=== PATIENT | female | born 1995 | race Caucasian/White ===

== ENCOUNTER 2016-06-28 06:17 | Inpatient (IN) | payer OTHER ==
[~2016-06-28] VITALS: Ht 175.3 cm; Wt 150.0 kg
[2016-06-28] VITALS (36 sets, daily range): BP systolic 104–182; BP diastolic 55–94
[2016-06-28] MEDS ORDERED: PRENTAB9 PO (07:04)
[2016-06-28 07:48] LABS: BASO # 0.1 K/mm3 (0.0-0.2); BASO % 0.5 % (0.0-1.0); EOS # 0.1 K/mm3 (0.0-0.50); EOS % 0.8 % (0.0-3.0); LARGE UNSTAINED CELL # 0.2 K/mm3 (0.0-0.4); LARGE UNSTAINED CELL % 1.1 % (0.0-4.0); LYMPH # 1.7 K/mm3 (1.5-6.5); LYMPH % 12.7 % (24.0-44.0); MEAN CORPUSCULAR HEMOGLOBIN 23.8 pg (27.0-33.0); MEAN CORPUSCULAR HGB CONC 31.3 g/dl (32.0-36.5); MEAN CORPUSCULAR VOLUME 75.9 fl (80.0-96.0); MONO # 0.6 K/mm3 (0.0-0.8); MONO % 4.8 % (0.0-5.0); NEUTROPHILS # 10.7 K/mm3 (1.8-7.7); NEUTROPHILS % 80.1 % (36.0-66.0); PLATELET COUNT, AUTOMATED 340 k/mm3 (150-450); WHITE BLOOD COUNT 13.4 K/mm3 (4.0-10.0)
[2016-06-28 08:21] LABS: ALT/SGPT 24 U/L (12-78); AST/SGOT 24 U/L (15-37); BILIRUBIN,TOTAL 0.3 MG/DL (0.2-1.0); GLOMERULAR FILTRATION RATE > 60.0 (>60); URIC ACID 3.4 MG/DL (2.6-6.0)
[2016-06-28] MEDS ORDERED: miSOPROStol 50 MCG 1/2 TAB (S0191) PO ONE (08:45)
[2016-06-28] MEDS: miSOPROStol 50 MCG 1/2 TAB (S0191) PO SCH ×2 (13:53→18:13)
[2016-06-28] MEDS ORDERED: ACETAMINOPHEN 500 MG TAB As Ordered ONE (16:40)
[2016-06-28] MEDS ORDERED: ACETAMINOPHEN 500 MG TAB PO PRN (16:45)
[2016-06-28] MEDS: LR 1,000 ML IV SCH (20:40)
[2016-06-28] MEDS ORDERED: OXYTOCIN DRIP 30 UNITS in APPROPRIATE DILUENT 1 EA IV SCH (20:45)
[2016-06-29] VITALS (29 sets, daily range): BP systolic 86–174; BP diastolic 50–106
[2016-06-29] MEDS ORDERED: miSOPROStol 25 MCG 1/4 TAB (S0191) PV ONE (10:00)
[2016-06-29] MEDS ORDERED: miSOPROStol 25 MCG 1/4 TAB (S0191) As Ordered ONE (10:04)
[2016-06-29] MEDS: LR 1,000 ML IV SCH ×2 (14:43→20:00)
[2016-06-29] MEDS ORDERED: BICITRA 30ML SOLN UDC PO ONE (14:45)
[2016-06-29] MEDS ORDERED: OXYTOCIN INJ 10 UNITS/ML VIAL (J2590) As Ordered ONE (14:46)
[2016-06-29] MEDS ORDERED: MORPHINE PRES-FREE INJ 10 MG/10 ML VIAL (J2274) As Ordered ONE (14:46)
[2016-06-29] MEDS ORDERED: KETOROLAC 60 MG/2 ML VIAL (J1885) As Ordered ONE (16:36)
[2016-06-29] MEDS ORDERED: PROMETHAZINE 25 MG TAB PO PRN (17:15)
[2016-06-29] MEDS ORDERED: MEASLES,MUMPS,RUBELLA VACCINE INJ (MMR-II) (90707) SC SCH (17:15)
[2016-06-29] MEDS ORDERED: ONDANSETRON 4MG/2ML VIAL (J2405) IV PRN ×2 (17:15)
[2016-06-29] MEDS ORDERED: METHYLERGONOVINE MALEATE 0.2 MG/ML VIAL (J2210) IM PRN (17:15)
[2016-06-29] MEDS ORDERED: fentaNYL 100 MCG/2 ML INJECTION (J3010) IV PRN (17:15)
[2016-06-29] MEDS ORDERED: RHOGAM 300 MCG (1500 IU) INJ (J2790) IM SCH (17:15)
[2016-06-29] MEDS ORDERED: PERCOCET 5MG/325MG TAB PO PRN ×2 (17:15)
[2016-06-29] MEDS ORDERED: NALBUPHINE HCL 10 MG/ML AMP (J2300) IV PRN (17:15)
[2016-06-29] MEDS ORDERED: MEPERIDINE INJ 25 MG/ML VIAL (J2175) IV PRN (17:15)
[2016-06-29] MEDS: DOCUSATE SODIUM 100 MG CAP PO SCH (21:00)
[2016-06-29] MEDS: KETOROLAC 30 MG/ML VIAL (J1885) IV SCH (22:34)
[2016-06-30] VITALS (7 sets, daily range): BP systolic 136–172; BP diastolic 72–86
[2016-06-30] MEDS: LR 1,000 ML IV SCH ×2 (03:18→09:05)
[2016-06-30] MEDS: KETOROLAC 30 MG/ML VIAL (J1885) IV SCH ×3 (03:50→15:54)
[2016-06-30] MEDS: MAG Sulf (OBGYN) 20GM/500ML 20,000 MG in APPROPRIATE DILUENT 1 EA IV SCH (04:30)
[2016-06-30 06:51] LABS: MEAN CORPUSCULAR HEMOGLOBIN 24.5 pg (27.0-33.0); MEAN CORPUSCULAR HGB CONC 32.1 g/dl (32.0-36.5); MEAN CORPUSCULAR VOLUME 76.2 fl (80.0-96.0); RED CELL DISTRIBUTION WIDTH 15.1 % (11.5-14.5)
[2016-06-30] MEDS: PRENATAL VITAMIN TAB PO SCH (09:12)
[2016-06-30] MEDS: DOCUSATE SODIUM 100 MG CAP PO SCH ×2 (09:12→19:10)
[2016-06-30] MEDS: PERCOCET 5MG/325MG TAB PO PRN ×2 (14:20→19:10)
--- NOTE | 2016-06-30 20:35 | RO ---
DATE OF PROCEDURE: 06/29/2016 PREOPERATIVE DIAGNOSES: 1. Failed induction of labor. 2. Intrauterine at 37 and 3 weeks estimated gestational age. 3. Preeclampsia. POSTOPERATIVE DIAGNOSES: 1. Failed induction of labor. 2. Intrauterine at 37 and 3 weeks estimated gestational age. 3. Preeclampsia. 4. Delivered. PROCEDURE PERFORMED: Primary low transverse section. SURGEON: Carmen Cortez MD WHEEL INSTALLER: Wilmer Trammell MD ANESTHESIA: Spinal. ESTIMATED BLOOD LOSS: 700 mL. FLUIDS: 2100 mL of lactated Ringer's. URINE OUTPUT: 25 mL. CONDITION: Stable. COMPLICATIONS: None. SPECIMEN: Placenta. ANTIBIOTICS: Ancef 2 grams IV times one prior to skin incision. INDICATION: The patient is a 20-year-old, G1 at 37 and 3 weeks estimated gestational age admitted for induction of labor for preeclampsia. She was given four doses of misoprostol and had approximately 12 hours of Pitocin and through approximately 36 hours of induction the patient only progressed to 1 cm of dilation. At that point the patient was counseled and consented for a section for failed induction of labor. FINDINGS: Normal uterus, tubes and ovaries bilaterally. Viable male infant, Apgars 8 and 8, weight 6 pounds 2 ounces, 2784 grams. OPERATIVE PROCEDURE: The risks, benefits, indications and alternatives were reviewed with the patient and informed consent was obtained. The patient was taken to the operating room where spinal anesthesia was obtained without difficulty. She was then prepped and draped in a normal sterile fashion in the dorsal supine position with a leftward tilt. A Pfannenstiel skin incision was then made with a scalpel and carried through to the underlying layer of fascia. Fascia was then incised in the midline and the incision extended laterally with Marcus scissors. Superior aspect of the fascial incision was grasped with Meseret clamps, elevated and underlying rectus muscles dissected off aided with Marcus scissors. Attention was then turned to the inferior aspect. The incision which in a similar fashion was grasped, tented up with Meseret clamps and the rectus muscles dissected off aided with Marcus scissors. The peritoneal incision was then extended horizontally with good visualization of the bladder. The bladder blade was then inserted. Next, the lower uterine segment was incised in a transverse fashion with the scalpel. The uterine incision was then extended manually. The amniotic sac was artificially ruptured productive of clear fluid. The bladder blade was then removed. The 's head delivered atraumatically in the OP position through the hysterotomy without difficulty. The nose and mouth were suctioned with bulb syringe and the cord doubly clamped and cut. Infant was handed off to the waiting pediatricians. The placenta was then removed spontaneously with gentle traction on the umbilical cord. The uterus was then exteriorized and cleared of all clots and debris. The uterine incision was repaired with #0 Vicryl in a running locked fashion. A second layer of #0 Vicryl was then used to imbricate the hysterotomy. The posterior cul-de-sac was irrigated. The uterus was then returned to the abdomen and the hysterotomy was again noted to be hemostatic. The fascia was then reapproximated with #0 Vicryl in a running fashion. The subcutaneous layer was closed with #3-0 Vicryl in a running fashion. The skin was then closed with #3- 0 Monocryl on a German needle in subcuticular fashion. The incision was then dressed with Steri-Strips and a pressure dressing applied. At the completion of the case, bimanual exam was performed noting good uterine tone and minimal vaginal bleeding. The patient tolerated the procedure well. Sponge, lap and needle counts were correct times three. The patient was taken to the recovery room in stable condition. ANNE
[2016-06-30] MEDS: IBUPROFEN 800 MG TAB PO SCH (23:55)
[2016-07-01] VITALS (26 sets, daily range): BP systolic 134–174; BP diastolic 58–107
[2016-07-01] MEDS: PERCOCET 5MG/325MG TAB PO PRN ×2 (00:33→15:06)
[2016-07-01] MEDS ORDERED: hydrALAZINE INJ 20 MG/ML VIAL IV ONE (02:15)
[2016-07-01] MEDS ORDERED: MAG Sulf (L&D) 4 GM/100 ML 4 GM in APPROPRIATE DILUENT 1 EA IV ONE (02:15)
[2016-07-01 03:36] LABS: BASO % 0.2 % (0.0-1.0); EOS # 0.2 K/mm3 (0.0-0.50); EOS % 1.4 % (0.0-3.0); LARGE UNSTAINED CELL # 0.1 K/mm3 (0.0-0.4); LARGE UNSTAINED CELL % 0.9 % (0.0-4.0); LYMPH # 2.2 K/mm3 (1.5-6.5); LYMPH % 19.3 % (24.0-44.0); MEAN CORPUSCULAR HEMOGLOBIN 23.9 pg (27.0-33.0); MEAN CORPUSCULAR VOLUME 77.1 fl (80.0-96.0); MONO # 0.5 K/mm3 (0.0-0.8); NEUTROPHILS # 7.9 K/mm3 (1.8-7.7); NEUTROPHILS % 73.2 % (36.0-66.0); PLATELET COUNT, AUTOMATED 309 k/mm3 (150-450); RED CELL DISTRIBUTION WIDTH 15.4 % (11.5-14.5); WHITE BLOOD COUNT 10.8 K/mm3 (4.0-10.0)
[2016-07-01] MEDS ORDERED: LABETALOL HCL 100 MG/20 ML VIAL IV STA (03:40)
[2016-07-01 04:08] LABS: ALBUMIN 1.9 GM/DL (3.2-5.2); ALBUMIN/GLOBULIN RATIO 0.48 (1.00-1.93); ALKALINE PHOSPHATASE 117 U/L (45-117); ALT/SGPT 28 U/L (12-78); ANION GAP 8 MEQ/L (8-16); AST/SGOT 24 U/L (15-37); BILIRUBIN,DIRECT < 0.1 MG/DL (0.0-0.2); BILIRUBIN,TOTAL 0.2 MG/DL (0.2-1.0); BLOOD UREA NITROGEN 7 MG/DL (7-18); CALCIUM LEVEL 8.5 MG/DL (8.5-10.1); CARBON DIOXIDE LEVEL 25 MEQ/L (21-32); CHLORIDE LEVEL 108 MEQ/L (98-107); CREATININE FOR GFR 0.71 MG/DL (0.55-1.02); GLOMERULAR FILTRATION RATE > 60.0 (>60); GLUCOSE, FASTING 89 MG/DL (70-105); MAGNESIUM LEVEL 1.7 MG/DL (1.8-2.4); POTASSIUM SERUM 3.4 MEQ/L (3.5-5.1); SODIUM LEVEL 141 MEQ/L (136-145); TOTAL PROTEIN 5.9 GM/DL (6.4-8.2)
[2016-07-01] MEDS: DOCUSATE SODIUM 100 MG CAP PO SCH ×2 (08:53→21:00)
[2016-07-01] MEDS: PRENATAL VITAMIN TAB PO SCH (08:53)
[2016-07-01] MEDS: IBUPROFEN 800 MG TAB PO SCH ×2 (08:53→16:34)
[2016-07-01] MEDS: LR 1,000 ML IV SCH (13:46)
[2016-07-01] MEDS: MAG Sulf (OBGYN) 20GM/500ML 20,000 MG in APPROPRIATE DILUENT 1 EA IV SCH ×2 (13:47→22:40)
[2016-07-02] VITALS (9 sets, daily range): BP systolic 137–154; BP diastolic 60–85
[2016-07-02] MEDS: IBUPROFEN 800 MG TAB PO SCH ×4 (00:30→23:49)
[2016-07-02] MEDS: LR 1,000 ML IV SCH (01:52)
[2016-07-02 06:41] LABS: BASO % 0.1 % (0.0-1.0); EOS # 0.2 K/mm3 (0.0-0.50); EOS % 2.5 % (0.0-3.0); LARGE UNSTAINED CELL # 0.2 K/mm3 (0.0-0.4); LARGE UNSTAINED CELL % 1.6 % (0.0-4.0); LYMPH # 1.5 K/mm3 (1.5-6.5); LYMPH % 15.3 % (24.0-44.0); MEAN CORPUSCULAR HEMOGLOBIN 24.2 pg (27.0-33.0); MEAN CORPUSCULAR HGB CONC 31.9 g/dl (32.0-36.5); MEAN CORPUSCULAR VOLUME 75.9 fl (80.0-96.0); MONO # 0.4 K/mm3 (0.0-0.8); MONO % 4.2 % (0.0-5.0); NEUTROPHILS # 7.4 K/mm3 (1.8-7.7); NEUTROPHILS % 76.2 % (36.0-66.0); PLATELET COUNT, AUTOMATED 325 k/mm3 (150-450); RED CELL DISTRIBUTION WIDTH 15.5 % (11.5-14.5); WHITE BLOOD COUNT 9.7 K/mm3 (4.0-10.0)
[2016-07-02 07:00] LABS: ALBUMIN 1.9 GM/DL (3.2-5.2); ALBUMIN/GLOBULIN RATIO 0.49 (1.00-1.93); ALKALINE PHOSPHATASE 106 U/L (45-117); ALT/SGPT 26 U/L (12-78); ANION GAP 8 MEQ/L (8-16); AST/SGOT 26 U/L (15-37); BILIRUBIN,TOTAL 0.2 MG/DL (0.2-1.0); BLOOD UREA NITROGEN 3 MG/DL (7-18); CALCIUM LEVEL 7.2 MG/DL (8.5-10.1); CARBON DIOXIDE LEVEL 25 MEQ/L (21-32); CHLORIDE LEVEL 108 MEQ/L (98-107); CREATININE FOR GFR 0.53 MG/DL (0.55-1.02); GLOMERULAR FILTRATION RATE > 60.0 (>60); GLUCOSE, FASTING 88 MG/DL (70-105); POTASSIUM SERUM 3.5 MEQ/L (3.5-5.1); SODIUM LEVEL 141 MEQ/L (136-145); TOTAL PROTEIN 5.8 GM/DL (6.4-8.2)
[2016-07-02] MEDS: PRENATAL VITAMIN TAB PO SCH (08:24)
[2016-07-02] MEDS: DOCUSATE SODIUM 100 MG CAP PO SCH ×2 (08:24→21:30)
[2016-07-02] MEDS: PERCOCET 5MG/325MG TAB PO PRN ×3 (11:21→22:00)
--- NOTE | 2016-07-02 20:02 | ECGEPIP ---
Stationary ECG Study [facility] - ED Test Date: 2016-07-01 Pat Name: VINI ARIZMENDI Department: Room: [place] [address] Gender: F Manager Acquisition: ANÍBAL : 1995 Requested By: MIKEY Tovar Order Number: [id number] Reading MD: Sharlene Lopez Measurements Intervals [place] Rate: 112 P: 53 CT: 132 QRS: 5 QRSD: 99 T: 31 QT: 323 QTc: 442 Interpretive Statements SINUS TACHYCARDIA POSSIBLE ANTERIOR MYOCARDIAL INFARCTION, PROBABLY OLD ABNORMAL RHYTHM ECG NSTTW ABNORMALITY NO PRIOR FOR COMPARISON Electronically Signed On 07-02-2016 20:02:21 EST by Sharlene Lopez
[2016-07-03 01:48] VITALS: BP 149/72
[2016-07-03 06:04] VITALS: BP 146/79
[2016-07-03] MEDS: IBUPROFEN 800 MG TAB PO SCH (07:31)
[2016-07-03] MEDS: PRENATAL VITAMIN TAB PO SCH (07:32)
[2016-07-03] MEDS: DOCUSATE SODIUM 100 MG CAP PO SCH (07:33)
[2016-07-03] MEDS ORDERED: COLA100C PO (07:56)
[2016-07-03] MEDS ORDERED: OXYC1TAB23 PO (08:01)
[2016-07-03] MEDS ORDERED: IBUP-1114 PO (08:01)
== END 2016-07-03 08:10 | disposition home or self-care (01) | DRG 765 ==
LOC: M LDI 06:17 → M OBS 06-29 18:15
PROVIDERS: ADMIT Obstetrics & Gynecology; ATTEND Obstetrics & Gynecology
PROC: 3E0P7GC Introduction of Other Therapeutic Substance into Female Reproductive, Via Natural or Artificial Opening (ICD-10-PCS; 2016-06-28)
PROC: 10D00Z1 Extraction of Products of Conception, Low, Open Approach (ICD-10-PCS; principal; 2016-06-29 16:01)
DX: O11.4 Pre-existing hypertension with pre-eclampsia, complicating childbirth (principal); Z68.42 Body mass index [BMI] 45.0-49.9, adult; O99.214 Obesity complicating childbirth; E66.01 Morbid (severe) obesity due to excess calories; J45.909 Unspecified asthma, uncomplicated; O99.52 Diseases of the respiratory system complicating childbirth; Z3A.37 37 weeks gestation of pregnancy; O99.344 Other mental disorders complicating childbirth; F32.9 Major depressive disorder, single episode, unspecified; F41.9 Anxiety disorder, unspecified; E28.2 Polycystic ovarian syndrome; O99.284 Endocrine, nutritional and metabolic diseases complicating childbirth; O61.0 Failed medical induction of labor; Z37.0 Single live birth; O10.02 Pre-existing essential hypertension complicating childbirth

== ENCOUNTER 2016-07-08 16:58 | Emergency (ER) | payer OTHER ==
[~2016-07-08] VITALS: Ht 175.3 cm; Wt 149.7 kg
[~2016-07-08 16:58] MED LIST: COLA100C PO; IBUP-1114 PO; OXYC1TAB23 PO; PRENTAB9 PO
[2016-07-08 17:00] VITALS: BP 169/112
[2016-07-08] MEDS ORDERED: KEFL500C7 PO (18:43)
[2016-07-08] MEDS ORDERED: OXYCODONE/APAP 5MG/325MG(BULK) 1 TAB TAB PO ONE (18:45)
== END 2016-07-08 18:51 | disposition home or self-care (01) ==
LOC: M ED 18:17
DX: N10 Acute pyelonephritis (principal); O99.345 Other mental disorders complicating the puerperium; F32.9 Major depressive disorder, single episode, unspecified; E28.2 Polycystic ovarian syndrome